=== PATIENT | male | born 1995 | race Caucasian/White ===

== ENCOUNTER 2020-09-02 16:31 | Inpatient (IN) | payer MEDICAID ==
[~2020-09-02] VITALS: Ht 180.3 cm; Wt 84.8 kg
[2020-09-02 19:33] VITALS: BP 118/74
[2020-09-02] MEDS ORDERED: INFLUENZA VIRUS VACCINE QVS 2020-21 (6MO+)/PF 60 MCG/0.5 ML SYRINGE IM ONE (23:00)
[2020-09-03 06:32] VITALS: BP 114/75
[2020-09-03] MEDS ORDERED: ALBUTEROL SULFATE HFA 90 MCG/PUFF 8 GM INHALER IH PRN (07:15)
[2020-09-03] MEDS ORDERED: ONDANSETRON HCL 4 MG TABLET PO PRN (07:15)
[2020-09-03] MEDS ORDERED: LOPERAMIDE HCL 2 MG CAPSULE PO PRN (07:15)
[2020-09-03] MEDS ORDERED: GuaiFENesin/D-METHORPHAN [SUGAR-FREE] 200-20MG/10 ML SYRUP UDCUP PO PRN (07:15)
[2020-09-03] MEDS ORDERED: CloNIDine HCL 0.1 MG TABLET PO PRN (07:15)
[2020-09-03] MEDS ORDERED: MAGNESIUM HYDROXIDE SUSPENSION 30 ML UDCUP PO PRN (07:15)
[2020-09-03] MEDS ORDERED: DOCUSATE SODIUM 100 MG CAPSULE PO PRN (07:15)
[2020-09-03] MEDS ORDERED: PETROLATUM,WHITE 28 GM JELLY TP PRN (07:15)
[2020-09-03] MEDS ORDERED: MAG HYDROX/AL HYDROX/SIMETH ES 30 ML SUSPENSION UDCUP PO PRN (07:15)
[2020-09-03] MEDS ORDERED: NICOTINE 14 MG/24 HOUR PATCH TD PRN (07:15)
[2020-09-03 08:39] VITALS: BP 121/78
[2020-09-03] MEDS: LORazepam 1 MG TABLET PO PRN (12:59)
[2020-09-03] MEDS: RisperiDONE 2 MG TABLET PO SCH ×2 (12:59→20:47)
[2020-09-03 16:14] VITALS: BP 117/65
[2020-09-03] MEDS: HALOPERIDOL 5 MG TABLET PO PRN (17:04)
[2020-09-03] MEDS: ZOLPIDEM TARTRATE 10 MG TABLET PO PRN (20:47)
[2020-09-04 08:30] VITALS: BP 142/90
[2020-09-04] MEDS: RisperiDONE 2 MG TABLET PO SCH ×2 (09:41→20:39)
[2020-09-04] MEDS: HALOPERIDOL 5 MG TABLET PO PRN (16:19)
[2020-09-04 16:25] VITALS: BP 122/76
[2020-09-05 05:05] VITALS: BP 104/66
[2020-09-05] MEDS: LORazepam 1 MG TABLET PO PRN ×2 (05:19→16:28)
[2020-09-05] MEDS: HALOPERIDOL 5 MG TABLET PO PRN ×2 (05:19→16:28)
[2020-09-05 08:32] VITALS: BP 105/65
[2020-09-05] MEDS: RisperiDONE 2 MG TABLET PO SCH ×2 (09:10→20:30)
[2020-09-05 16:16] VITALS: BP 128/92
[2020-09-06 04:19] VITALS: BP 125/75
[2020-09-06] MEDS: RisperiDONE 2 MG TABLET PO SCH ×2 (08:58→21:18)
[2020-09-06] MEDS: HALOPERIDOL 5 MG TABLET PO PRN (16:21)
[2020-09-06] MEDS: LORazepam 1 MG TABLET PO PRN (16:21)
[2020-09-06 17:08] VITALS: BP 134/88
[2020-09-07 06:45] VITALS: BP 106/69
[2020-09-07 08:18] LABS: BASOPHILS % (AUTO) 0.2 % (0.0-2.0); EOSINOPHILS % (AUTO) 2.7 % (1.0-6.0); HEMATOCRIT 45.2 % (41-53); HEMOGLOBIN 15.4 g/dL (13.5-17.5); LYMPHOCYTES # (AUTO) 1.4 K/uL (1.0-4.8); LYMPHOCYTES % (AUTO) 29.1 % (22.0-44.0); MEAN CORPUSCULAR HEMOGLOBIN 30.4 pg (26.0-34.0); MEAN CORPUSCULAR VOLUME 89 fL (80-100); MONOCYTES # (AUTO) 0.5 K/uL (0.1-1.0); MONOCYTES % (AUTO) 9.9 % (2.0-9.0); NEUTROPHILS # (AUTO) 2.8 K/uL (1.8-7.7); NEUTROPHILS % (AUTO) 58.1 % (40.0-70.0); PLATELET COUNT (AUTO) 266 K/uL (150-450); RED BLOOD CELL COUNT(AUTO) 5.06 MIL/uL (4.50-5.90); RED CELL DISTRIBUTION WIDTH 14.6 % (11.5-14.5)
[2020-09-07 08:20] VITALS: BP 111/65
[2020-09-07 08:35] LABS: ANION GAP 9 mmol/L (8-16); CARBON DIOXIDE 27 mmol/L (22-29); CHLORIDE 103 mmol/L (98-107); CREATININE 0.73 mg/dL (0.60-1.30); GLOMERULAR FILTR. RATE CALC > 60 mL/min (>60); SODIUM SERUM 139 mmol/L (136-145)
[2020-09-07] MEDS: RisperiDONE 2 MG TABLET PO SCH ×2 (08:56→20:29)
[2020-09-07] MEDS: LORazepam 1 MG TABLET PO PRN ×2 (08:56→16:45)
[2020-09-07 09:02] LABS: ALANINE AMINOTRANSFERASE 31 U/L (12-78); ALBUMIN 3.6 g/dL (3.4-5.0); ALKALINE PHOSPHATASE 55 U/L (46-116); ASPARTATE AMINOTRANSFERASE 15 U/L (15-37); BILIRUBIN,TOTAL 0.3 mg/dL (0.1-1.0); CHOL/HDL RATIO 3.8 (4.2-7.3); CHOLESTEROL 172 mg/dL (131-200); GLUCOSE,RANDOM 84 mg/dL (70-110); HDL CHOLESTEROL 45 mg/dL (40-60); LDL CHOL (CALC.) 111 mg/dL (0-130); THYROID STIMULATING HORMONE 1.31 uIU/mL (0.36-3.74); TOTAL PROTEIN, SERUM 6.9 g/dL (6.4-8.2); TRIGLYCERIDES 79 mg/dL (15-150); UREA NITROGEN, BLOOD 18 mg/dL (7-18)
[2020-09-07] MEDS: HALOPERIDOL 5 MG TABLET PO PRN (16:45)
[2020-09-07 18:00] VITALS: BP 118/70
[2020-09-08 04:40] VITALS: BP 124/69
[2020-09-08] MEDS: RisperiDONE 2 MG TABLET PO SCH ×2 (09:28→20:30)
[2020-09-08 16:06] VITALS: BP 118/80
[2020-09-08] MEDS: LORazepam 1 MG TABLET PO PRN (16:13)
[2020-09-08] MEDS: ACETAMINOPHEN 325 MG TABLET PO PRN (16:13)
[2020-09-08] MEDS: HALOPERIDOL 5 MG TABLET PO PRN (16:13)
[2020-09-09] MEDS: LORazepam 1 MG TABLET PO PRN (08:33)
[2020-09-09] MEDS: RisperiDONE 2 MG TABLET PO SCH ×2 (08:33→20:11)
[2020-09-09 08:34] VITALS: BP 118/75
[2020-09-09 16:25] VITALS: BP 119/85
[2020-09-10 01:21] VITALS: BP 125/71
[2020-09-10] MEDS: LORazepam 1 MG TABLET PO PRN ×2 (08:33→16:44)
[2020-09-10] MEDS: RisperiDONE 2 MG TABLET PO SCH ×2 (08:33→20:25)
[2020-09-10 08:38] VITALS: BP 107/61
[2020-09-10 16:39] VITALS: BP 117/72
[2020-09-10] MEDS: HALOPERIDOL 5 MG TABLET PO PRN (16:44)
[2020-09-11 02:30] VITALS: BP 111/88
[2020-09-11 08:45] VITALS: BP 93/54
[2020-09-11] MEDS: RisperiDONE 2 MG TABLET PO SCH ×2 (09:04→20:11)
[2020-09-11] MEDS: HALOPERIDOL 5 MG TABLET PO PRN (16:03)
[2020-09-11] MEDS: LORazepam 1 MG TABLET PO PRN (16:03)
[2020-09-11 16:14] VITALS: BP 131/80
[2020-09-12 05:15] VITALS: BP 136/78
[2020-09-12] MEDS: RisperiDONE 2 MG TABLET PO SCH ×2 (08:10→20:48)
[2020-09-12] MEDS: IBUPROFEN 400 MG TABLET PO PRN (08:11)
[2020-09-12 08:38] VITALS: BP 116/71
[2020-09-12] MEDS: LORazepam 1 MG TABLET PO PRN (16:23)
[2020-09-12] MEDS: ACETAMINOPHEN 325 MG TABLET PO PRN (16:24)
[2020-09-12 16:33] VITALS: BP 132/84
[2020-09-13 05:21] VITALS: BP 128/79
[2020-09-13] MEDS: RisperiDONE 2 MG TABLET PO SCH ×2 (08:31→20:42)
[2020-09-13 09:10] VITALS: BP 111/80
[2020-09-13] MEDS: IBUPROFEN 400 MG TABLET PO PRN (10:41)
[2020-09-13] MEDS: LORazepam 1 MG TABLET PO PRN ×2 (13:28→16:30)
[2020-09-13] MEDS: HALOPERIDOL 5 MG TABLET PO PRN (16:30)
[2020-09-13 17:03] VITALS: BP 116/77
[2020-09-14 04:45] VITALS: BP 114/70
[2020-09-14] MEDS: IBUPROFEN 400 MG TABLET PO PRN (06:56)
[2020-09-14 07:56] VITALS: BP 123/79
[2020-09-14 08:20] VITALS: BP 123/79
[2020-09-14] MEDS: HALOPERIDOL 5 MG TABLET PO PRN (08:23)
[2020-09-14] MEDS: LORazepam 1 MG TABLET PO PRN (08:23)
[2020-09-14] MEDS: RisperiDONE 2 MG TABLET PO SCH ×2 (08:23→22:13)
[2020-09-14 09:53] LABS: COVID AG,FIA SOURCE NASOPHARYNGEAL
[2020-09-14 11:02] LABS: APPEARANCE,URINE CLEAR (CLEAR); BILIRUBIN,URINE NEGATIVE (NEGATIVE); GLUCOSE, URINE (UA) NEGATIVE (NEGATIVE); KETONES,URINE NEGATIVE (NEGATIVE); LEUKOCYTE ESTERASE ,URINE NEGATIVE (NEGATIVE); NITRATE,URINE NEGATIVE (NEGATIVE); OCCULT BLOOD,URINE NEGATIVE (NEGATIVE); PH,URINE 5.5 (5.0-8.0); PROTEIN,URINE NEGATIVE (NEGATIVE); UROBILINOGEN,URINE 0.2 mg/dL (<=1.0)
[2020-09-14 11:10] LABS: AMPHET/METH SCREEN,URINE NEGATIVE (NEGATIVE); BARBITURATE SCREEN, URINE NEGATIVE (NEGATIVE); BENZODIAZEPINES SCREEN,URINE NEGATIVE (NEGATIVE); CANNABINOID SCREEN,URINE NEGATIVE (NEGATIVE); COCAINE SCREEN,URINE NEGATIVE (NEGATIVE); METHADONE SCREEN, URINE NEGATIVE (NEGATIVE); OPIATE SCREEN,URINE NEGATIVE (NEGATIVE)
[2020-09-14 11:15] LABS: PHENCYCLIDINE SCREEN,URINE NEGATIVE (NEGATIVE)
[2020-09-14 16:12] VITALS: BP 117/67
[2020-09-15 06:42] VITALS: BP 116/80
[2020-09-15] MEDS: IBUPROFEN 400 MG TABLET PO PRN ×2 (07:20→16:35)
[2020-09-15 08:29] VITALS: BP 106/63
[2020-09-15] MEDS: LORazepam 1 MG TABLET PO PRN (09:09)
[2020-09-15] MEDS: RisperiDONE 2 MG TABLET PO SCH ×2 (09:09→20:29)
[2020-09-15] MEDS: HALOPERIDOL 5 MG TABLET PO PRN (09:09)
[2020-09-15 16:37] VITALS: BP 116/77
[2020-09-16 00:57] VITALS: BP 110/74
[2020-09-16 08:27] VITALS: BP 121/75
[2020-09-16] MEDS: RisperiDONE 2 MG TABLET PO SCH ×2 (09:00→20:25)
[2020-09-16] MEDS: IBUPROFEN 400 MG TABLET PO PRN ×2 (09:02→18:34)
[2020-09-16 16:19] VITALS: BP 124/78
[2020-09-16] MEDS: ZOLPIDEM TARTRATE 10 MG TABLET PO PRN (20:26)
[2020-09-17 05:23] VITALS: BP 118/73
[2020-09-17 08:04] VITALS: BP 122/68
[2020-09-17] MEDS: IBUPROFEN 400 MG TABLET PO PRN (08:10)
[2020-09-17] MEDS: RisperiDONE 2 MG TABLET PO SCH ×2 (08:10→21:29)
[2020-09-17] MEDS: LORazepam 1 MG TABLET PO PRN ×3 (09:07→16:25)
[2020-09-17] MEDS: HALOPERIDOL 5 MG TABLET PO PRN (16:25)
[2020-09-17 17:22] VITALS: BP 117/73
[2020-09-18 01:48] VITALS: BP 124/80
[2020-09-18] MEDS: IBUPROFEN 400 MG TABLET PO PRN ×2 (06:07→16:47)
[2020-09-18 09:18] VITALS: BP 112/76
[2020-09-18] MEDS: RisperiDONE 2 MG TABLET PO SCH ×2 (09:25→20:37)
[2020-09-18] MEDS: HALOPERIDOL 5 MG TABLET PO PRN (10:55)
[2020-09-18] MEDS: ACETAMINOPHEN 325 MG TABLET PO PRN (10:56)
[2020-09-18] MEDS: LORazepam 1 MG TABLET PO PRN (10:56)
[2020-09-18 16:40] VITALS: BP 142/69
[2020-09-19] MEDS: IBUPROFEN 400 MG TABLET PO PRN (04:07)
[2020-09-19 04:08] VITALS: BP 123/78
[2020-09-19 08:27] VITALS: BP 115/82
[2020-09-19] MEDS: ACETAMINOPHEN 325 MG TABLET PO PRN (09:39)
[2020-09-19] MEDS: RisperiDONE 2 MG TABLET PO SCH (09:40)
[2020-09-19] MEDS ORDERED: RISP2TAB45 PO (13:01)
== END 2020-09-19 14:40 | disposition home or self-care (01) | DRG 750 ==
LOC: B3A 19:00
PROVIDERS: ATTEND Psychiatry & Neurology Child & Adolescent Psychiatry
DX: F20.0 Paranoid schizophrenia (principal); R00.0 Tachycardia, unspecified; F41.9 Anxiety disorder, unspecified; R10.13 Epigastric pain; Z20.822 Contact with and (suspected) exposure to COVID-19; Z59.0 Homelessness
CPT/HCPCS: 80307; 83036; 84439; 84443; 87081; 87426; 90686; G0480